=== PATIENT | male | born 1960 | race Caucasian/White ===

== ENCOUNTER 2017-10-17 07:18 | Day surgery (SDC) | payer OTHER ==
[~2017-10-17] VITALS: Ht 182.9 cm; Wt 81.7 kg
[2017-10-17] MEDS ORDERED: PROPOFOL 20 ML ONE (08:35)
[2017-10-17] MEDS ORDERED: LIDOCAINE 100 MG SYRINGE ONE (08:35)
[2017-10-17] MEDS ORDERED: ATROPINE 1 MG INJ ONE (08:36)
[2017-10-17 08:37] VITALS: Ht 182.9 cm; Wt 81.7 kg
[2017-10-17] MEDS ORDERED: OMEPRAZOLE (08:42)
--- NOTE | 2017-10-17 09:24 | OPPN ---
Date/Time of Note Date/Time of Note DATE: 10/17/17 TIME: 09:23 Operative Report Preoperative Diagnosis Chronic heartburn Screening colonoscopy Postoperative Diagnosis Hiatal hernia and gastroesophageal reflux disease Gastritis with erosions Internal and external hemorrhoids No colon neoplasm is identified Operation/Procedure Performed Esophagogastroduodenoscopy and biopsy Colonoscopy Surgeon see signature line financial assistance specialist None Anesthesia: MAC Estimated blood loss: none Transfusion Required none Specimen Gastric mucosal biopsy Grafts/Implants none Complications none DAVON MARKS MD Oct 17, 2017 09:23
--- NOTE | 2017-10-17 12:35 | GILP ---
DATE OF PROCEDURE: NAME OF PROCEDURES: 1. Esophagogastroduodenoscopy and biopsy. 2. Colonoscopy. SURGEON: Davon Blum MD PREOPERATIVE DIAGNOSES: 1. Chronic heartburn. 2. Screening colonoscopy. POSTOPERATIVE DIAGNOSES: 1. Hiatal hernia. 2. Gastroesophageal reflux disease. 3. Gastritis with erosions. 4. Gastric mucosal biopsies were taken for Helicobacter pylori test. 5. Colonoscopy all the way to the cecum. 6. Internal and external hemorrhoids. 7. No colon neoplasm was identified. INDICATION FOR THE PROCEDURE: Mr. Elizabet Denis is a 57-year-old male patient who had chronic hea rtburn, not responding to therapy. Patient also needed screening colonoscopy. The procedures and possible complications were well explained to the patient. The patient understoo d and consented to the procedure. DESCRIPTION OF PROCEDURE: Under the influence of anesthesia, the gastroscope was carefully introduc ed into the esophagus and under direct vision, it was advanced in the stomach and through the pyloru s into the duodenal bulb and descending duodenum. FINDINGS: ESOPHAGUS: The patient had hiatal hernia and gastroesophageal reflux disease. STOMACH: He had gastritis with erosions. Gastric mucosal biopsies were taken for H. pylori test. DUODENUM: Normal. The colonoscope was carefully introduced in the rectum and under direct vision, it was advanced all the way to the cecum. FINDINGS: The patient had internal and external hemorrhoids. No colon neoplasm was identified. He tolerated the procedures very well and there was no complication from the procedures. At the end of the procedures, he was awake with stable vital signs and he was discharged home to the care of h is family. IMPRESSION: Please see postoperative diagnosis. PLAN: 1. Continue omeprazole. 2. Add Zantac 300 mg p.o. at bedtime. 3. Await H. pylori test report. 4. Next screening colonoscopy in 10 years. Dictated By: DAVON SWEENEY/AJAY Conf#: [id number] DID#: [id number]
== END 2017-10-17 11:27 | disposition home or self-care (01) ==
LOC: GIL 07:18
PROVIDERS: ATTEND Internal Medicine Gastroenterology
DX: Z12.11 Encounter for screening for malignant neoplasm of colon (principal); K64.8 Other hemorrhoids; K64.4 Residual hemorrhoidal skin tags; K29.70 Gastritis, unspecified, without bleeding; K44.9 Diaphragmatic hernia without obstruction or gangrene; K21.9 Gastro-esophageal reflux disease without esophagitis; F17.200 Nicotine dependence, unspecified, uncomplicated
CPT/HCPCS: 43239; 45378; 87081; J0461; J2001; Z7610